=== PATIENT | male | born 1985 | race Caucasian/White ===

== ENCOUNTER → 2019-09-13 | Day surgery (SDC) | payer SELFPAY ==
[~2019-09-13] MED LIST: CIPR2.5D OD; CIPR500T94 PO; CLINDAMYCIN 900MG PREMIX 50 ML IV ONE; CYCL2DRO3 OD; DEXAMETHASONE SOD PHOS 4 MG/ML VIAL ONE; HYDR-3164 PO; HYDR-3165 PO; HYDROcodone/APAP 7.5/325MG 1 TAB TABLET PO ONE; HYDROmorphone 2 MG/ML VIAL IV PRN; IV RINGERS,LACTATED 1000ML 1,000 ML IV SCH; LIDOCAINE 2% PF 5 ML VIAL. ONE; MIDAZOLAM HCL/PF 2 MG/2 ML VIAL. ONE; MORPHINE SULFATE 2 MG/ML VIAL. IV PRN; ONDANSETRON PF 4 MG/2 ML VIAL. IV PRN; ONDANSETRON PF 4 MG/2 ML VIAL. ONE; PROCHLORPERAZINE 10 MG/2 ML VIAL. IV PRN; PROPOFOL 20 ML IV ONE; fentaNYL PF VIAL 100 MCG/2 ML VIAL IV PRN; fentaNYL PF VIAL 100 MCG/2 ML VIAL ONE
--- NOTE | 2019-09-13 22:07 | DISCH ---
DISCHARGE INSTRUCTIONS Condition on Discharge Condition on Discharge: Stable Activity After Discharge Activity Instructions for Disc: Other, see below (no hard grasp, keep dressing clean and dry) Diet after Discharge Diet after Discharge: Regular Wound Incision Care Wound/Incision Care: Change dressing (May remove dressing in 3 days then protect with light dressing or Band-Aid) Contacting the after DC Call your doctor for: Concerns you may have Follow-Up Follow up with: Dr. Kilgore 10 days FANNIE KILGORE MD Sep 13, 2019 22:07
--- NOTE | 2019-09-13 22:27 | PDOC4 ---
Operative Note Operative Note Date of surgery: 09/13/2019 Preoperative diagnosis: Open distal phalanx fracture left third fingertip with nailbed injury Postoperative diagnosis: Same Operative procedure: Irrigation debridement open distal phalanx fracture with nailbed repair. Surgeon: Magui Anesthesia: Gen. Estimated blood loss: 15 mL Complications: None Operative indications: Please see my dictated preoperative consultation for detailed operative indications Operative text: Patient was identified procedure verified patient placed in the supine position on the operating table. After adequate amounts of general anesthesia were administered the left upper extremity was prepped and draped in standard sterile fashion and after timeout was performed patient procedure identified and verified light sharp debridement was carried out and thorough irrigation carried out normal saline solution. He had good viable tissue at the fingertip and the fingernail was elevated off the nailbed to allow initial suture fixation of the skin to allow good alignment and the distal portion of the skin and nailbed were drawn underneath and into apposition with nylon suture placed through the nail itself with excellent alignment throughout the nail was retained as a splint thorough irrigation again carried out and dressing carried out with iodoform gauze 4 x 4 dressings and tube gauze. Patient was returned to recovery room in stable condition having tolerated procedure well FANNIE HALL MD Sep 13, 2019 22:27
[2019-09-13 22:46] VITALS: BP 158/70
--- NOTE | 2019-09-14 00:18 | CONS ---
DATE OF CONSULTATION: 09/13/2019 ORTHOPEDIC CONSULTATION REQUESTING CONSULTATION: Actually [facility] Emergency Department. REASON FOR CONSULTATION: Open left third distal phalanx fracture with nail bed injury. 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 He had his fingers split open, was bleeding. He presented to [facility] Emergency Department with an open distal phalanx fracture and nail bed injury. ____ contamination and open fracture and nail bed injury, they were comfortable dealing with that at [facility] and transferred him to [place] for further evaluation and treatment. PAST MEDICAL HISTORY: He denies any significant past medical history. PAST SURGICAL HISTORY AND FAMILY HISTORY: Noncontributory. ALLERGIES: INCLUDE AMOXICILLIN AND OTHER PENICILLINS THAT GAVE HIM A RASH A BABY. SOCIAL HISTORY: Denies any drug use. REVIEW OF SYSTEMS: Significant really only for the left third finger injury. Denies any loss of consciousness, chest pain, shortness of breath, constitutional symptoms or other problems. PHYSICAL EXAMINATION: GENERAL: He is a pleasant, cooperative 33-year-old male, alert and oriented, no acute distress. VITAL SIGNS: Per admission sheet. HEENT: Atraumatic, normocephalic. HEART: Regular rate and rhythm. LUNGS: Clear to auscultation bilaterally. ABDOMEN: Benign. EXTREMITIES: Examination of the left hand reveals a nail bed injury with just a crush injury to his left third finger with obvious open injury with bone palpable. The finger as well as the rest of his hands are contaminated with grease. Sensation is decreased at the tip of the compromised skin with irregular laceration present. No involvement of the distal interphalangeal joint. Flexor or extensor function is all intact to the fingers. No compromise of the remaining fingers of the contralateral right hand. Normal examination of bilateral shoulders, elbows, wrists as well. IMAGING: X-rays show distal phalanx tuft fracture of the left third fingertip. No other bony abnormality. IMPRESSION: Left finger crush injury with open distal phalanx fracture and nail bed injury. TREATMENT PLAN: I went over with him the concern of increased infection with the contamination and the open fracture and the rationale for operative treatment, cleaning the area out thoroughly, sewing it back up, treating the nail bed injury and placing him on some antibiotics with wound care postoperatively. All his questions were answered. He wishes to proceed with surgical evaluation and treatment. He had last eaten at about 1:00 p.m. and we will otherwise be planned for outpatient surgery. FANNIE HALL MD DR: TORRES/gricel JOB#: [id number] / [id number] CARMELITA Pastor
== END ==
LOC: SURG 19:30
PROVIDERS: ATTEND Orthopaedic Surgery
DX: S62.633A Displaced fracture of distal phalanx of left middle finger, initial encounter for closed fracture (principal); S61.313A Laceration without foreign body of left middle finger with damage to nail, initial encounter; Z88.1 Allergy status to other antibiotic agents; Z88.0 Allergy status to penicillin; Z88.8 Allergy status to other drugs, medicaments and biological substances; X58.XXXA Exposure to other specified factors, initial encounter; Y93.89 Activity, other specified; Y92.89 Other specified places as the place of occurrence of the external cause; Y99.8 Other external cause status
CPT/HCPCS: 26765; A7015; J1100; J2001; J2250; J2405; J2704; J3010; J3490